=== PATIENT | female | born 1965 | race Caucasian/White ===

== ENCOUNTER 2021-02-14 21:55 | Observation (INO) | payer BC, OTHER, SELFPAY ==
[2021-02-14] MEDS ORDERED: Promethazine HCl 25 MG/ML VIAL ONE (23:51)
[2021-02-14] MEDS ORDERED: Sodium Chloride 0.9% 0 ML ONE (23:52)
[2021-02-15] MEDS ORDERED: HYDROcodone/Acetaminophen 5/325 mg Tablet PO PRN (00:12)
[2021-02-15] MEDS ORDERED: Senokot S 8.6-50 MG TAB PO PRN (00:13)
[2021-02-15] MEDS ORDERED: Acetaminophen 325 MG TAB PO PRN (00:13)
[2021-02-15] MEDS ORDERED: Ketorolac Tromethamine 30 MG/ML VIAL IVP SCH (00:15)
[2021-02-15] MEDS ORDERED: Pregabalin 50 MG CAP PO SCH (00:15)
[2021-02-15 00:59] LABS: Lactic Acid 1.8 mmol/L (0.5-2.2)
[2021-02-15 01:47] VITALS: BMI 24.3
[2021-02-15] MEDS: Sodium Chloride 0.9% 1,000 ML IV SCH ×3 (01:58→21:53)
[2021-02-15] MEDS: HYDROcodone/Acetaminophen 5/325 mg Tablet PO PRN ×4 (06:02→19:18)
[2021-02-15] MEDS: Promethazine HCl 25 MG in Sodium Chloride 0.9% 50 ML IVPB PRN ×2 (06:02→21:52)
[2021-02-15 06:40] LABS: Anion Gap 10 mmol/L (10-20); BUN (Urea Nitrogen) 7 mg/dL (9.8-20.1); Calc. Creatinine Clearance 105 mL/min (70-130); Carbon Dioxide 26 mmol/L (22-29); Chloride 107 mmol/L (98-107); Glucose 77 mg/dL (70-105); Sodium 140 mmol/L (136-145)
[2021-02-15 06:46] LABS: Potassium 2.8 mmol/L (3.5-5.1)
[2021-02-15 06:51] LABS: Mean Corpuscular HGB CONC 32.7 g/dL (32.0-36.0); Mean Corpuscular Hemoglobin 33.8 pg (27.0-31.0); Mean Platelet Volume 8.8 fL (7.4-10.4); Platelet Count 330 thou/uL (130-400); RBC Distribution Width 13.6 % (11.5-14.5); Red Blood Cell (RBC) Count 3.56 mill/uL (4.20-5.40); White Blood Cell (WBC) Count 8.3 thou/uL (4.8-10.8)
[2021-02-15] MEDS: Famotidine/PF 20 mg/2ml Vial SLOW IVP SCH ×2 (08:06→21:53)
[2021-02-15] MEDS: Famotidine 20 MG TAB PO SCH ×2 (08:06→21:53)
[2021-02-15 08:53] LABS: SARS-CoV-2 PCR by NAA Not Detected (NotDetected)
[2021-02-15] MEDS ORDERED: FLU VACC QS2020-21(6MOS UP)/PF 60 MCG/0.5 ML SYRINGE IM ONE (09:00)
[2021-02-15] MEDS ORDERED: Potassium Chloride 10 MEQ in Premix Bag 1 BAG IVPB SCH (11:00)
[2021-02-15] MEDS ORDERED: Sodium Chloride 0.9% 100 ML ONE (12:00)
[2021-02-15] MEDS ORDERED: cefTRIAXone\\ROCEPHIN 1 GM VIAL ONE (12:00)
[2021-02-15] MEDS ORDERED: Fentanyl 100 MCG/2 ML VIAL ONE ×3 (12:11→13:21)
[2021-02-15] MEDS ORDERED: Ioversol 68 % 50 ML VIAL ONE (12:19)
[2021-02-15] MEDS ORDERED: PROPOFOL 200 MG/20 ML VIAL ONE (12:38)
[2021-02-15] MEDS ORDERED: Ondansetron PF 4 MG/2 ML Vial ONE ×2 (12:38→13:21)
[2021-02-15] MEDS ORDERED: Dexamethasone 20 MG/5 ML VIAL ONE (12:38)
[2021-02-15] MEDS ORDERED: PHENYLEPHRINE-NS 100 MCG/ML 10 ML SYRINGE ONE (12:38)
[2021-02-15] MEDS ORDERED: Lidocaine 1% PF 5 ML VIAL ONE (12:38)
[2021-02-15] MEDS ORDERED: Ondansetron HCl/PF 4 MG/2 ML Vial IVP PRN (13:12)
[2021-02-15] MEDS ORDERED: Promethazine HCl 25 MG/ML VIAL IM PRN (13:12)
[2021-02-15] MEDS ORDERED: Promethazine HCl 25 MG/ML VIAL SLOW IVP PRN (13:12)
[2021-02-15] MEDS ORDERED: cefTRIAXone\\ROCEPHIN 1 GM in Sodium Chloride 0.9% 100 ML IVPB SCH (20:00)
[2021-02-16] MEDS: HYDROcodone/Acetaminophen 5/325 mg Tablet PO PRN (00:52)
[2021-02-16] MEDS: Famotidine 20 MG TAB PO SCH (07:48)
[2021-02-16] MEDS: Sodium Chloride 0.9% 1,000 ML IV SCH (07:48)
[2021-02-16] MEDS: Famotidine/PF 20 mg/2ml Vial SLOW IVP SCH (07:51)
[2021-02-16 09:09] VITALS: BP 158/93; TEMP 97.4
[2021-02-16 10:22] LABS: Anion Gap 12 mmol/L (10-20); BUN (Urea Nitrogen) 6 mg/dL (9.8-20.1); Calc. Creatinine Clearance 106 mL/min (70-130); Calcium 8.4 mg/dL (7.8-10.44); Carbon Dioxide 22 mmol/L (22-29); Chloride 106 mmol/L (98-107); Glucose 104 mg/dL (70-105); Magnesium 1.3 mg/dL (1.6-2.6); Phosphorus 2.4 mg/dL (2.3-4.7); Sodium 137 mmol/L (136-145)
[2021-02-16 10:26] LABS: #Basophils 0.1 thou/uL (0.0-0.2); #Lymphocytes 1.6 thou/uL (1.20-3.40); #Monocytes 1.2 thou/uL (0.11-0.59); #Neutrophils 8.6 thou/uL (1.40-6.50); %Basophils 0.6 % (0.0-1.0); %Eosinophils 0.1 % (0.0-10.0); %Lymphocytes 13.6 % (21.0-51.0); %Monocytes 10.5 % (0.0-10.0); %Neutrophils 75.1 % (42.0-75.0); Hemoglobin 11.5 g/dL (12.0-16.0); Mean Corpuscular HGB CONC 33.6 g/dL (32.0-36.0); Mean Corpuscular Hemoglobin 34.2 pg (27.0-31.0); Mean Platelet Volume 8.7 fL (7.4-10.4); Platelet Count 350 thou/uL (130-400); RBC Distribution Width 13.8 % (11.5-14.5); Red Blood Cell (RBC) Count 3.37 mill/uL (4.20-5.40); White Blood Cell (WBC) Count 11.5 thou/uL (4.8-10.8)
== END 2021-02-16 14:28 | disposition home or self-care (01) ==
LOC: ERS 21:55 → INTOOBSV 23:24 → T4-B 23:24
PROVIDERS: ADMIT Student in an Organized Health Care Education/Training Program; ATTEND Internal Medicine
PROC: 0T778DZ Dilation of Left Ureter with Intraluminal Device, Via Natural or Artificial Opening Endoscopic (ICD-10-PCS; principal; 2021-02-15)
DX: A41.9 Sepsis, unspecified organism (principal); N20.1 Calculus of ureter; N10 Acute pyelonephritis; M79.7 Fibromyalgia; J45.20 Mild intermittent asthma, uncomplicated; G43.709 Chronic migraine without aura, not intractable, without status migrainosus; E87.6 Hypokalemia; Z91.041 Radiographic dye allergy status; Z20.822 Contact with and (suspected) exposure to COVID-19
CPT/HCPCS: 36415; 74420; 80048; 83605; 83735; 84100; 85025; 87635; 96365; 96375; 96376; G0378; J0696; J1100; J1885; J2405; J2550; J2704; J3010; J3480; J3490; Q9967; S0028; U0003; U0005

== ENCOUNTER 2021-02-26 09:58 | Day surgery (SDC) | payer OTHER, SELFPAY ==
[2021-02-25 11:53] VITALS: BMI 23.9
[2021-02-26] MEDS ORDERED: Midazolam HCl 2 mg/2 ml Vial ONE (11:24)
[2021-02-26] MEDS ORDERED: Iothalamate Meglumine 60% 50 ML VIAL FS ONE (11:27)
[2021-02-26] MEDS ORDERED: Fentanyl 100 MCG/2 ML VIAL ONE ×3 (11:33→14:12)
[2021-02-26] MEDS ORDERED: PROPOFOL 200 MG/20 ML VIAL ONE (12:39)
[2021-02-26] MEDS ORDERED: Ondansetron PF 4 MG/2 ML Vial ONE (12:39)
[2021-02-26] MEDS ORDERED: Dexamethasone 20 MG/5 ML VIAL ONE (12:39)
[2021-02-26] MEDS ORDERED: Lidocaine 1% PF 5 ML VIAL ONE (12:39)
[2021-02-26] MEDS ORDERED: Meperidine HCl/PF 25 MG/ML VIAL ONE (14:01)
[2021-02-26] MEDS ORDERED: HYDROcodone/Acetaminophen 5/325 mg Tablet ONE (14:51)
[2021-02-26] MEDS ORDERED: Promethazine HCl 25 MG/ML VIAL ONE (15:12)
== END 2021-02-26 15:50 | disposition home or self-care (01) ==
LOC: SDC 09:58
PROVIDERS: ATTEND Urology
PROC: 0TC48ZZ Extirpation of Matter from Left Kidney Pelvis, Via Natural or Artificial Opening Endoscopic (ICD-10-PCS; principal; 2021-02-26)
PROC: 0T778DZ Dilation of Left Ureter with Intraluminal Device, Via Natural or Artificial Opening Endoscopic (ICD-10-PCS; principal; 2021-02-26)
DX: N20.1 Calculus of ureter (principal); Z88.8 Allergy status to other drugs, medicaments and biological substances; Z91.011 Allergy to milk products
CPT/HCPCS: 74420; J0690; J1100; J2175; J2250; J2405; J2550; J2704; J3010; Q9961